=== PATIENT | male | born 1955 | race Caucasian/White ===

== ENCOUNTER 2018-05-19 11:43 | Day surgery (SDC) | payer BC ==
[~2018-05-19] VITALS: Ht 175.3 cm; Wt 76.3 kg
[2018-05-19 12:46] VITALS: Ht 175.3 cm; Wt 76.3 kg
[2018-05-19] MEDS ORDERED: FOLI-49 PO (12:53)
[2018-05-19] MEDS ORDERED: TAMS0.4C2 PO (12:53)
[2018-05-19 13:22] VITALS: BP 135/81; PULSE 72; RESP 13
--- NOTE | 2018-05-19 14:03 | PREAC ---
Date/Time of Note Date/Time of Note DATE: 05/19/18 TIME: 14:02 Anesthesia Eval and Record Evaluation Time Pre-Procedure Interview DATE: 05/19/18 TIME: 14:02 Age 62 Sex male NPO: 8 hrs Preoperative diagnosis screening Planned procedure Colonoscopy Past Medical History Past Medical History: Includes Renal: BPH, Other Surgery & Anesthesia Issues No known issue Meds Anticoagulation: No Beta Ester within 24 hr: No Reason Beta Ester not given: Pt. not on B-Ester Reported Medications Tamsulosin Hcl* (Tamsulosin Hcl*) 0.4 Mg Cap.er.24h, 0.4 MG PO DAILY, CAP 05/19/18 Folic Acid* (Folic Acid*) 1 Mg Tablet, 1 MG PO DAILY, TAB 05/19/18 Meds reviewed: Yes Allergies Coded Allergies: No Known Allergy (Unverified , 05/19/18) Allergies Reviewed: Yes Labs/Studies Labs Reviewed: Reviewed by anesthesiologist test: N/A Studies: ECG (n/qa), CXR (n/a) Pre-procedure Exam Last vitals Vital Signs Date Temp Pulse Resp B/P (MAP) Pulse Ox O2 O2 Flow FiO2 Time Delivery Rate 05/19/18 97.8 72 13 135/81 99 Room Air 13:22 (99) Airway: Adequate mouth opening Mallampati: Mallampati I Teeth: Normal Lung: Normal Heart: Normal ASA Physical Status ASA physical status: 1 Emergency: None Planned Pain Management Parenteral pain med Pre-operative Attestations Prior to commencing anesthesia and surgery, the patient was re-evaluated, there was verification of: *The patient's identity *The results of appropriate recent lab work and preoperative vital signs *The above evaluation not changing prior to induction *Anesthetic plan, risk benefits, alternative and complications discussed with patient/family; questions answered; patient/family understands, accepts and wishes to proceed. PAIGE GONZALEZ MD May 19, 2018 14:03
[2018-05-19] MEDS ORDERED: PROPOFOL 20 ML ONE ×2 (14:29→14:56)
[2018-05-19] MEDS ORDERED: ONDANSETRON 4 MG INJ IV PRN (14:30)
[2018-05-19] MEDS ORDERED: FENTAnyl 50 MCG/ML VIAL ONE (14:30)
--- NOTE | 2018-05-19 15:23 | HPN ---
Date/Time of Note Date/Time of Note DATE: 05/19/18 TIME: 15:23 Interval H&P Admission Note Pt. seen H&P reviewed: No system changes ALF LITTLEJOHN May 19, 2018 15:23
[2018-05-19 15:28] VITALS: BP 137/72; PULSE 77; RESP 20
--- NOTE | 2018-05-19 17:36 | PAC ---
Date/Time of Note Date/Time of Note DATE: 05/19/18 TIME: 17:35 Post-Anesthesia Notes Post-Anesthesia Note Last documented vital signs Vital Signs Date Temp Pulse Resp B/P (MAP) Pulse Ox O2 O2 Flow FiO2 Time Delivery Rate 05/19/18 98.8 77 20 137/72 99 Room Air 15:28 (93) 05/19/18 97.8 13:22 Activity: WNL Respiratory function: WNL Cardiovascular function: WNL Mental status: Baseline Pain reasonably controlled: Yes Hydration appropriate: Yes Nausea/Vomiting absent: No PAIGE GONZALEZ MD May 19, 2018 17:36
== END 2018-05-19 15:44 | disposition home or self-care (01) ==
LOC: GIL 11:43
PROVIDERS: ATTEND Internal Medicine Gastroenterology
DX: Z12.11 Encounter for screening for malignant neoplasm of colon (principal); D12.4 Benign neoplasm of descending colon; K25.9 Gastric ulcer, unspecified as acute or chronic, without hemorrhage or perforation
CPT/HCPCS: 43239; 45380; 88305; 88312; J3010; Z7610